=== PATIENT | female | born 1975 | race Hispanic/Latino ===

== ENCOUNTER 2017-09-26 15:34 | Emergency (ER) | payer OTHER ==
[2017-09-26 17:11] LABS: HCG Qualitative,Urine Negative (Negative)
[2017-09-26 17:12] LABS: Bilirubin,Urine NEG (Negative); Blood,Urine NEG (Negative); Color,Urine Yellow (Yellow); Mucus,Urine FEW /HPF; Urobilinogen,Urine < 2.0 mg/dL (<2.0)
[2017-09-26] MEDS ORDERED: NACL 0.9% 1000 ML 1,000 ML IV ONE (18:13)
[2017-09-26] MEDS ORDERED: ZOFRAN IV ONE (18:13)
[2017-09-26] MEDS ORDERED: PEPCID IV ONE (18:13)
--- NOTE | 2017-09-26 18:15 | Emergency Department Report ---
Blank Doc - Documentation Documentation: Patient is a 42-year-old female who is complaining of nausea. Patient states last 24 hours she is been medicated unable to keep anything down. Patient states is no abdominal pain. Patient has several bowel movements but she would not consider this to be diarrhea. Patient denies any fevers chills nausea vomiting. Patient's had no change in her eating habits. BRIEF focused physical exam patient has no abdominal pain there is normal bowel sounds heart lungs were within normal limits. On looking at the patient's urine patient is not and she does have a great deal of ketones in her urine. Patient be sent for treatment room for nausea control IV fluids including D5 normal saline.
[2017-09-26 18:46] LABS: Basophils % (Auto) 0.4 % (0.0-1.8); Eosinophils % (Auto) 0.1 % (0.0-4.3); Hematocrit 38.7 % (30.3-42.9); Hemoglobin 13.6 gm/dl (10.1-14.3); Lymphocytes # (Auto) 0.8 K/mm3 (1.2-5.4); Lymphocytes % (Auto) 8.2 % (13.4-35.0); Mean Corpuscular HGB Conc 35 % (30-34); Mean Corpuscular Hemoglobin 31 pg (28-32); Mean Corpuscular Volume 89 fl (79-97); Monocytes # (Auto) 0.3 K/mm3 (0.0-0.8); Monocytes % (Auto) 3.4 % (0.0-7.3); Platelet Count 279 K/mm3 (140-440); Red Blood Count 4.35 M/mm3 (3.65-5.03); Red Cell Distribution Width 12.6 % (13.2-15.2)
[2017-09-26] MEDS ORDERED: D5NS 1,000 ML IV SCH (19:00)
[2017-09-26 19:06] LABS: Alanine Aminotransferase 7 units/L (7-56); Albumin 4.5 g/dL (3.9-5); BUN/Creatinine Ratio 15; Blood Urea Nitrogen 9 mg/dL (7-17); Calcium 9.1 mg/dL (8.4-10.2); Hemolysis Index 2
--- NOTE | 2017-09-26 19:40 | Emergency Department Report ---
Vomiting/Diarrhea - HPI Chief Complaint: Abdominal Pain Stated Complaint: VOMIT/NAUSEA/DIZZY Time Seen by Provider: 09/26/17 17:56 Duration: Today Severity: moderate Nausea/Vomiting Severity: Mild Diarrhea Severity: None Pain Severity: None Symptoms: Yes Able to Tolerate Fluids, Yes Contacts w/ Similar Symptoms ( possible on flank last night), No Watery Diarrhea, No Bloody diarrhea, No Fever , No Recent Unusual Foods, No Recent Untreated Water, No Recent use of Antibiotics, No Family w/ Similar Symptoms, No Rash, No Hematuria, No Recent URI Symptoms Other History: Patient is a 42-year-old female who presents with nausea that started this morning around 9:00. Patient states she is unable to keep anything down. She flew to [place] last night from [place] and only ate trail mix during the flight. Patient state she possibly pick something up at the airport when her flight. She is now having nausea, vomiting and chills. She denies abdominal pain or diarrhea, fever, unusual food, chest pain or burning sensation. ED Review of Systems ROS: Stated complaint: VOMIT/NAUSEA/DIZZY Other details as noted in HPI Constitutional: denies: chills, fever Respiratory: denies: cough, shortness of breath, wheezing Cardiovascular: denies: chest pain, palpitations Gastrointestinal: nausea, vomiting. denies: abdominal pain, diarrhea, constipation, hematemesis, melena, hematochezia Neurological: denies: headache, weakness, numbness, paresthesias Psychiatric: denies: anxiety, depression ED Past Medical Hx - Past Medical History Previous Medical History?: No - Surgical History Past Surgical History?: No - Social History Smoking Status: Never Smoker Substance Use Type: None - Medications Home Medications: Home Medications Medication Instructions Recorded Confirmed Last Taken Type Famotidine [Pepcid] 40 mg PO QHS #20 tablet 09/26/17 Unknown Rx Ondansetron [Zofran Odt] 4 mg PO TID PRN #12 tab.rapdis 09/26/17 Unknown Rx Vomiting Diarrhea Exam - Exam General: Vital signs noted. No distress. Alert and acting appropriately. HEENT: Yes Moist Mucous Membranes, No Pharyngeal Erythema, No Pharyngeal Exudates, No Rhinorrhea, No Conjuctival Injection, No Frontal Tenderness, No Maxillary Tenderness Neck: No Adenopathy, No Rigidity Lungs: Yes Clear Lung Sounds, Yes Good Air Exchange, No Wheezes, No Stridor, No Cough, No Nasal Flaring, No Retractions, No Use of Accessory Muscles Heart exam: Regular: Yes, Murmur: No, Tachycardia: No Abdomen: Tenderness: No, Peritoneal Signs: No, Distention: No, Hyperactive Bowel sounds: No Skin exam: Rash: No, Edema: No, Normal turgor: Yes Neurologic: Alert and oriented, no deficits. Musculoskeletal: Unremarkable. ED Course Vital Signs 09/26/17 16:01 Temperature 98 F Pulse Rate 76 Respiratory 16 Rate Blood Pressure 110/66 O2 Sat by Pulse 100 Oximetry ED Medical Decision Making - Lab Data Result diagrams: 09/26/17 18:24 09/26/17 18:24 Lab Results 09/26/17 09/26/17 09/26/17 Range/Units 16:53 18:24 18:24 WBC 9.8 (4.5-11.0) K/mm3 RBC 4.35 (3.65-5.03) M/mm3 Hgb 13.6 (10.1-14.3) gm/dl Hct 38.7 (30.3-42.9) % MCV 89 (79-97) fl MCH 31 (28-32) pg MCHC 35 H (30-34) % RDW 12.6 L (13.2-15.2) % Plt Count 279 (140-440) K/mm3 Lymph % (Auto) 8.2 L (13.4-35.0) % [place] % (Auto) 3.4 (0.0-7.3) % Eos % (Auto) 0.1 (0.0-4.3) % Baso % (Auto) 0.4 (0.0-1.8) % Lymph # 0.8 L (1.2-5.4) K/mm3 [place] # 0.3 (0.0-0.8) K/mm3 Eos # 0.0 (0.0-0.4) K/mm3 Baso # 0.0 (0.0-0.1) K/mm3 Seg Neutrophils % 87.9 H (40.0-70.0) % Seg Neutrophils # 8.7 H (1.8-7.7) K/mm3 Sodium 135 L (137-145) mmol/L Potassium 4.3 (3.6-5.0) mmol/L Chloride 97.1 L (98-107) mmol/L Carbon Dioxide 24 (22-30) mmol/L Anion Gap 18 mmol/L BUN 9 (7-17) mg/dL Creatinine 0.6 L (0.7-1.2) mg/dL Estimated GFR > 60 ml/min BUN/Creatinine Ratio 15 % Glucose 89 (65-100) mg/dL Calcium 9.1 (8.4-10.2) mg/dL Total Bilirubin 0.80 (0.1-1.2) mg/dL AST 22 (5-40) units/L ALT 7 (7-56) units/L Alkaline Phosphatase 32 L (35-129) units/L Total Protein 6.9 (6.3-8.2) g/dL Albumin 4.5 (3.9-5) g/dL Albumin/Globulin Ratio 1.9 % Urine Color Yellow (Yellow) Urine Turbidity Clear (Clear) Urine pH 8.0 H (5.0-7.0) Ur Specific [place] 1.021 (1.003-1.030) Urine Protein 30 mg/dl (Negative) mg/dL Urine Glucose (UA) Neg (Negative) mg/dL Urine Ketones 80 (Negative) mg/dL Urine Blood Neg (Negative) Urine Nitrite Neg (Negative) Ur Reducing Substances Not Reportable Urine Bilirubin Neg (Negative) Urine Ictotest Not Reportable Urine Urobilinogen < 2.0 (<2.0) mg/dL Ur Leukocyte Esterase Neg (Negative) Urine WBC (Auto) 1.0 (0.0-6.0) /HPF Urine RBC (Auto) 9.0 (0.0-6.0) /HPF U Epithel Cells (Auto) 8.0 (0-13.0) /HPF Urine Mucus Few /HPF Urine HCG, Qual Negative (Negative) - Medical Decision Making This is a 42 y.o. female that presents with nausea, vomiting, and chills that started this morning around 9 AM. Patient is stable and was examined by me and Dr. Yen. Vitals stable. Obtained CMP, CBC, urine hCG & UA. Urinalysis pH elevated and ketones, all other labs unremarkable.. Patient given D5NS 1L bolus , pepcid 20 mg IV, and zofran mg IV once in ER. Start zofran and pepcid for gastritis and increased fluid intake to 1-2 L daily to prevent dehydration. Discussed plan with patient and agreed to plan. No further questions noted by the patient. Discharged home in stable condition. Follow up with PCP in 2-3 days. Critical care attestation.: If time is entered above; I have spent that time in minutes in the direct care of this critically ill patient, excluding procedure time. ED Disposition Clinical Impression: Dehydration, Nausea and vomiting in adult Gastritis Qualifiers: Gastritis type: superficial Chronicity: acute Gastritis bleeding: without bleeding Qualified Code(s): K29.00 - Acute gastritis without bleeding Disposition: DC- TO HOME OR SELFCARE Is pt being admited?: No Does the pt Need Aspirin: No Condition: Stable Instructions: Abdominal Pain (ED) Additional Instructions: Frequent hand washing is important to reduce spread. Prompt disinfection of contaminated surfaces with household chlorine bleach- based microbiology technician and washing of soiled clothing and bedding should be advised. If food or water is thought to be contaminated, it should be avoided. Increase fluid intake to 1-2 L daily to prevent dehydration. Drinks high in sugars such as carbonated soft drinks, fruit juice, and highly sugared liquids should be avoided. Follow-up with primary care provider in 2-3 days. Prescriptions: Famotidine [Pepcid] 40 mg PO QHS #20 tablet Ondansetron [Zofran Odt] 4 mg PO TID PRN #12 tab.rapdis PRN Reason: Nausea And Vomiting Referrals: [facility] [Provider Group] - 3-5 Days [facility] [Provider Group] - 3-5 Days UMA YUEN MD [Staff Physician] - 3-5 Days Forms: Work/School Release Form(ED) Time of Disposition: 19:48 Print Language: SPANISH
[2017-09-26 20:47] VITALS: BP 110/60
== END 2017-09-26 20:45 | disposition home or self-care (01) ==
LOC: ED 15:34
DX: E86.0 Dehydration (principal); K29.70 Gastritis, unspecified, without bleeding
CPT/HCPCS: 36415; 80053; 81001; 81025; 85025; 96361; 96374; 96375; 99283; J2405; J7042